=== PATIENT | male | born 1995 | race Caucasian/White ===

== ENCOUNTER 2020-04-14 14:29 | Emergency (ER) | payer MEDICAID ==
[~2020-04-14] VITALS: Ht 172.7 cm; Wt 70.3 kg
[2020-04-14 14:30] VITALS: BP_SYST 133
== END 2020-04-14 15:48 | disposition left against medical advice (07) ==
LOC: SED 14:29
DX: F41.9 Anxiety disorder, unspecified (principal); Z53.21 Procedure and treatment not carried out due to patient leaving prior to being seen by health care provider